=== PATIENT | male | born 1980 | race African-American/Black ===

== ENCOUNTER → 2017-10-21 | Outpatient (CLI) | payer BC ==
--- NOTE | 2017-10-21 17:15 | DIAGNOSTIC IMAGING REPORT ---
MRI OF THE RIGHT KNEE WITHOUT CONTRAST CLINICAL HISTORY: Internal derangement of right knee. Persistent right knee pain and catching. COMPARISON STUDY: Right knee radiographs September 24, 2017. TECHNIQUE: Utilizing a 1.5 Shonda magnet and dedicated coil, multiplanar, multiecho imaging of the right knee was performed without intravenous or intraarticular contrast. FINDINGS: Alignment of the right knee is anatomic. A small right knee joint effusion is present. Extensor mechanism is intact. The anterior and posterior cruciate ligaments are intact. The medial collateral ligament and lateral collateral ligament complex are intact. There is no medial or lateral meniscal tear. There is marked subchondral edema within the medial femoral condyle. Note is made of a 1.4 cm subchondral focus of signal abnormality within the posterior aspect of the medial femoral condyle which suggests an osteochondral lesion. This is stable by MRI criteria. There is also moderate overlying chondrosis. There is moderate chondrosis within the medial patellofemoral compartment with subchondral signal abnormality, including a 1 cm T2 hyperintense subchondral focus within the medial trochlear cartilage with overlying full-thickness chondrosis. No suspicious marrow replacement is present. No mass or fluid collection is shown. IMPRESSION: 1. Marked subchondral marrow edema within the medial femoral condyle with a 1.4 cm subchondral focus of signal abnormality in the posterior aspect of the medial femoral condyle suggestive of an osteochondral lesion. 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 2. Moderate patellofemoral chondromalacia, most evident within the medial aspect of the patellofemoral compartment. 3. Small right knee joint effusion. Electronically signed by: Keith Arias M.D. 10/21/2017 5:13 PM Dictated Date/Time: 10/21/2017 2:42 PM
== END | disposition home or self-care (01) ==
LOC: C.MRI 13:29
PROVIDERS: ATTEND Family Medicine
DX: M25.561 Pain in right knee (principal); M23.91 Unspecified internal derangement of right knee

== ENCOUNTER → 2018-02-01 | Outpatient (CLI) | payer OTHER | END | disposition home or self-care (01) | LOC: C.LAB 11:37 | PROVIDERS: ATTEND Family Medicine | DX: N46.9 Male infertility, unspecified (principal) ==